=== PATIENT | female | born 1995 | race Two or more races ===

== ENCOUNTER 2023-09-08 10:13 | Emergency (ER) | payer BC, SELFPAY ==
[2023-09-08 10:28] VITALS: BP 112/79
--- NOTE | 2023-09-08 12:37 | ED.GENMED ---
History of Present Illness
General
Chief Complaint: Musculo-Skeletal Complaint
Source: patient
Exam Limitations: none
Time Seen by Provider: 09/08/23 11:18
Nursing documentation reviewed up to this point in time: agreed with
Travel History
Have you had any contact with someone who has COVID-19?: No
Do you have any symptoms of coronavirus? Fever > 100 degrees, chills, cough, shortness of breath, sore throat, loss of taste or smell, muscle aches, or headache?: No
History of Present Illness
History of Present Illness:
Patient is a 27-year-old female presenting for evaluation of left knee swelling. Patient describes what seems to be a brief patellar subluxation 2 days ago. She states the she was dancing with her friends when her left patella briefly dislocated
but quickly popped back into place. Patient has been applying ice over the past few days. She has been ambulating without much pain. Her mother became concerned regarding the swelling in the left knee and brought her in for further evaluation.
Patient denies any numbness or tingling in left lower extremity
Patient does report a prior left patellar subluxation about 12 years ago. She was briefly placed in a knee immobilizer and follow-up with orthopedics at that time.
Past History
Past History
ED Past Medical History: Other (Headaches, low platelets)
Social History
Tobacco: Non-smoker
Alcohol: None
Drug: None
Living: with family
Employment: Employed
Review of Systems
Review of Systems
Allergies reviewed?: Yes
All Other Systems: ROS reviewed and negative except as documented in HPI and ROS
Phy Exam
Physical Exam
Physical Exam:
Vitals: Patient's vital signs are stable. Afebrile
General: Patient is well appearing, no acute distress
Skin: Warm and dry, no rashes or lesions
Head: Normocephalic, atraumatic
Eyes: Sclera nonicteric. EOMs intact. No nystagmus.
Throat: Protecting airway
Neck: Normal ROM, no cervical spine tenderness, no meningismus
Cardiac: Regular rate and rhythm, no murmurs.
Pulm: Normal respiratory effort, no wheezes, rales, rhonchi heard on exam.
Abdomen: No abdominal tenderness.
Extremities: Mild diffuse edema of left knee with probable mild suprapatellar joint effusion, no bony deformity or patella subluxation at this time, no erythema or warmth of left knee, appropriate flexion and extension of left knee with very minimal
pain, no edema or tenderness of left ankle, left calf, left hip, great distal pulses of left lower extremity with sensation fully intact
Neuro: AAOx3. CN II-XII intact. No focal neurologic deficits.
Psychiatric: Normal affect.
Course
Orders/Labs/Results
Orders:
Orders
09/08/23 10:33
Knee, Left 4 or More Views [CR Knee - Left 4 Or More View*] Urgent
Comment:
Reason For Exam: pain and swelling
Vital Signs
Initial and Last Documented VS:
Initial Vital Signs
Temp Pulse BP Pulse Ox
98.9 F 80 112/79 100
09/08/23 10:28 09/08/23 10:28 09/08/23 10:28 09/08/23 10:28
Last Documented Vital Signs
Temp Pulse BP Pulse Ox
98.9 F 80 112/79 100
09/08/23 10:28 09/08/23 10:28 09/08/23 10:28 09/08/23 10:28
MDM/Problems Addressed
Differential Diagnosis Includes:
Not limited to: knee strain, suprapatellar effusion, ligamentous injury, patellar subluxation
MDM/Problems Addressed:
27 year old female presents with mild left knee swelling 3 days following what seems to be a left patellar dislocation with spontaneous relocation. Patient ambulating without much discomfort. Vitals stable. Exam as above. She does have mild diffuse
swelling of left knee with mild left suprapatellar effusion. There are no bony deformities noted. No redness or warmth to suggest any infectious process. Patient with acceptable ROM of left knee. Great distal pulses. Xray showed small suprapatellar
joint effusion without any evidence of current patellar dislocation.
Initial injury was 3 days ago and patient is ambulating comfortably without any repeat subluxations. Discussed knee immobilizer vs RONAN wrap with patient. Patient prefers RONAN wrap today.
Patient stable for discharge with ortho follow-up. Will wrap in RONAN bandage for joint effusion and recommend ice, elevation, NSAIDs as needed. Patient will follow-up with orthopedics in the next few days. Return precautions discussed.
Chronic conditions affecting care:
N/A
Acute Exacerbation and/or Progression of Chronic Illness:
N/A
*Radiology
Radiology exam reviewed: preliminary read by ED provider and radiology read reviewed
*Pulse Oximetry
Patient hypoxic: no
*EKG
Interpreted by ED Provider?: NA
*Plating Department Helper Interpretation
Rate: Plating Department Helper- N/A
*Critical Care Note
Total Time (30-74mins, 75-104mins- exclusive of procedures): Not Applicable
ED Attending Note
-
Portions of this chart may have been created with voice recognition software.� Occasional wrong word or��sound alike� substitutions may have occurred due to the inherent limitations of voice recognition software.
Discharge Plan
Departure
Patient Disposition: Home (Routine Discharge)
Date of Disposition: 09/08/23
Time of Disposition: 12:03
Patient with high blood pressure during this ER visit?: Yes
Condition: Good
Covid-19: Not Applicable
Discharge Problem:
Swelling of left knee joint
Instructions: Dislocated Kneecap (DC)
Prescriptions:
No Action
prochlorperazine maleate [Compazine] 10 mg tablet
10 mg PO Q8H PRN (Reason: nausea and vomiting) Qty: 20 0RF
Referrals:
Junaid Kraft MD [Active] - Call in 1-3 days for appt
NONE,* [Family Provider] -
Stand Alone Forms: Return to Work
Activity Restrictions/Additional Instructions:
-RETURN TO THE EMERGENCY DEPARTMENT WITH ANY FEVERS, CHILLS, INTRACTABLE PAIN, NUMBNESS/TINGLING IN LEFT LOWER EXTREMITY, WORSENING IN CURRENT SYMPTOMS, OR ANY OTHER CONCERNS
-As discussed�you should keep knee wrapped with Ronan bandage, elevate, and apply ice. You can take Motrin/Tylenol as needed for discomfort.
-You should follow-up with orthopedics for further evaluation/management. You may require further imaging of your knee.
Interventions
Interventions:
*Nursing Disposition Last Done: 09/08/23 12:24
ED-Musculoskeletal Assessment Last Done: 09/08/23 12:23
Discharge Date and Time
Discharge Date/Time: 09/08/23 12:24
Print Language: BELIZEAN
== END 2023-09-08 12:24 | disposition home or self-care (01) ==
LOC: EMR 10:13
PROVIDERS: EMERGENCY PHYSICIAN Emergency Medicine
DX: M25.462 Effusion, left knee (principal); R03.0 Elevated blood-pressure reading, without diagnosis of hypertension; G43.909 Migraine, unspecified, not intractable, without status migrainosus; D69.6 Thrombocytopenia, unspecified; Z88.6 Allergy status to analgesic agent
CPT/HCPCS: 99283; 73564